=== PATIENT | male | born 1980 | race Caucasian/White ===

== ENCOUNTER 2017-01-22 17:48 | Emergency (ER) | payer SELFPAY | END 2017-01-22 18:45 | disposition home or self-care (01) | LOC: ER 17:48 | DX: S49.91XA Unspecified injury of right shoulder and upper arm, initial encounter (principal); S70.311A Abrasion, right thigh, initial encounter; F17.200 Nicotine dependence, unspecified, uncomplicated; Z87.442 Personal history of urinary calculi; Z88.2 Allergy status to sulfonamides; W22.8XXA Striking against or struck by other objects, initial encounter | CPT/HCPCS: 71020; 73030-RT; 96372; 99283; A9270-GY; J2360 ==